=== PATIENT | female | born 1945 | race Caucasian/White ===

== ENCOUNTER 2016-10-03 11:07 | Inpatient (IN) | payer MEDICARE, BC ==
[~2016-10-03] VITALS: Ht 149.9 cm; Wt 50.5 kg
[~2016-10-03 11:07] MED LIST: ATOR80TA PO; DONE10TA37 PO; DULA0.5I SC; FLUO20CA19 PO; GABA-497 PO; GLIP-115 PO; LEVO75TA6 PO; MEMA28CA PO; SITA100T7 PO
[2016-10-03] MEDS ORDERED: SODIUM CHLORIDE 0.9% 1,000 ML IV ONE ×2 (12:00→13:11)
[2016-10-03 12:19] LABS: Basophils # (auto) 0 uL; Basophils % (auto) 0.3 % (0.0-2.0); CONDITION Y; Eosinophils # (auto) 0 uL; Hematocrit 50.2 % (36.0-46.0); Lymphocytes # (auto) 2.5 uL; Mean Corpuscular Hemoglobin 33.8 pg (28.0-32.0); Mean Corpuscular Volume 99.6 fL (80.0-100.0); Mean Platelet Volume 8.1 fL (7.4-10.4); Monocytes # (auto) 1.4 uL; Monocytes % (auto) 10.4 % (0.0-12.0); Neutrophils # (auto) 9.7 uL; Neutrophils % (auto) 71.3 % (37.0-80.0); Platelet Count (auto) 295 10^3/uL (140-450); Red Cell Distribution Width 14.3 % (11.6-16.0); White Blood Cell 13.6 10^3/uL (4.4-10.8)
[2016-10-03 12:35] LABS: INR 1.04 (0.9-1.15); Partial Thromboplastin Time 23.8 sec (22.64-33.71); Prothrombin Time 11.3 sec (9.37-12.3)
[2016-10-03 12:49] LABS: Albumin 2.8 g/dL (3.4-5.0); Alkaline Phosphatase 149 U/L (45-117); Anion Gap 7 (5-15); Aspartate Aminotransferase 112 U/L (15-37); BUN/Creatinine Ratio 33.3; Bilirubin, Total 0.6 mg/dL (0.2-1.0); Blood Urea Nitrogen 17 mg/dL (7-18); Calcium 9.2 mg/dL (8.5-10.1); Carbon Dioxide 26 mmol/L (21-32); Chloride 110 mmol/L (98-107); GFR African American 153 mL/min; GFR Non-African American 127 mL/min; Glucose 143 mg/dL (74-106); Potassium 3.8 mmol/L (3.5-5.1); Sodium 143 mmol/L (136-145); Total Protein 6.9 g/dL (6.4-8.2)
[2016-10-03] MEDS: SODIUM CHLORIDE 0.9% 1,000 ML IV SCH ×4 (16:59→23:00)
[2016-10-03] MEDS ORDERED: TEMAZEPAM 15 MG CAP PO PRN (17:00)
[2016-10-03] MEDS: InsuLIN REG 1unit/0.01ml Soln (100units/ml) SC SCH ×2 (17:00→22:00)
[2016-10-03] MEDS ORDERED: DEXTROSE (50%) 50ML SYRG IV PRN (17:00)
[2016-10-03] MEDS ORDERED: MORPHINE SULFATE 4 MG/ML SYRG IV PRN (17:00)
[2016-10-03] MEDS: ACCU-CHEK COMFORT CURVE STRIP VI SCH ×2 (17:00→22:00)
[2016-10-03] MEDS ORDERED: LORazepam 0.5 MG TAB PO PRN (17:00)
[2016-10-03] MEDS ORDERED: LACTULOSE 20Gm/30ML SOLN PO PRN (17:00)
[2016-10-03] MEDS ORDERED: MORPHINE SULF INJ 2 MG/ML SYRINGE 1ML IV PRN ×2 (17:00)
[2016-10-03] MEDS ORDERED: NITROGLYCERIN 0.4 MG SL TAB SL PRN (17:00)
[2016-10-03 17:43] LABS: Cholesterol 126 mg/dL (< 200); HDL Cholesterol 48 mg/dL (40-59); LDL Cholesterol 67 mg/dL (< 100); Triglycerides 109 mg/dL (< 150)
[2016-10-03] MEDS: ENOXAPARIN SOD 40 MG/0.4 ML SYRINGE SC SCH (17:49)
[2016-10-03 20:27] VITALS: BP 139/86
[2016-10-03 21:15] VITALS: BP 139/86
[2016-10-04 01:54] LABS: Urine Bilirubin Negative (Negative); Urine Blood 1+ /uL (Negative); Urine Color Yellow (Yellow); Urine Glucose Normal (Normal); Urine Ketone 1+ (Negative); Urine Mucus FEW (None Seen); Urine Nitrite Negative (Negative); Urine RBC 2 /hpf (0 - 4); Urine Urobilinogen Normal (Negative)
[2016-10-04 05:00] VITALS: BP 149/77
[2016-10-04] MEDS: ACCU-CHEK COMFORT CURVE STRIP VI SCH ×4 (06:55→22:07)
[2016-10-04] MEDS: InsuLIN REG 1unit/0.01ml Soln (100units/ml) SC SCH ×4 (06:56→22:00)
[2016-10-04 09:00] VITALS: BP 131/78
[2016-10-04 13:00] VITALS: BP 135/87
[2016-10-04 17:41] VITALS: BP 132/73
[2016-10-04] MEDS: ENOXAPARIN SOD 40 MG/0.4 ML SYRINGE SC SCH (18:30)
[2016-10-04 20:00] VITALS: BP 103/53
[2016-10-04 21:45] VITALS: BP 103/53
[2016-10-04] MEDS ORDERED: LORazepam 2MG/ML-1ML VIAL IV PRN (22:30)
[2016-10-05] VITALS (7 sets, daily range): BP systolic 113–127; BP diastolic 62–72
[2016-10-05] MEDS: InsuLIN REG 1unit/0.01ml Soln (100units/ml) SC SCH ×4 (06:13→22:00)
[2016-10-05] MEDS: ACCU-CHEK COMFORT CURVE STRIP VI SCH ×4 (06:13→22:03)
[2016-10-05] MEDS: SODIUM CHLORIDE 0.9% 1,000 ML IV SCH ×2 (09:55→22:57)
[2016-10-05] MEDS: MEMANTINE HCL 5 MG TAB PO SCH ×2 (09:55→22:57)
[2016-10-05 10:25] LABS: Temperature: 24.3 C (20.0-25.0)
[2016-10-05] MEDS: ENOXAPARIN SOD 40 MG/0.4 ML SYRINGE SC SCH (18:01)
[2016-10-05] MEDS: DONEPEZIL HYDROCHLORIDE 5 MG TAB PO SCH (22:57)
[2016-10-06 05:00] VITALS: BP 116/64
[2016-10-06] MEDS: SODIUM CHLORIDE 0.9% 1,000 ML IV SCH ×2 (06:23→16:18)
[2016-10-06] MEDS: ACCU-CHEK COMFORT CURVE STRIP VI SCH ×4 (06:48→22:00)
[2016-10-06] MEDS: InsuLIN REG 1unit/0.01ml Soln (100units/ml) SC SCH ×4 (06:49→22:00)
[2016-10-06 09:07] VITALS: BP 141/73
[2016-10-06] MEDS: MEMANTINE HCL 5 MG TAB PO SCH ×2 (10:52→22:25)
[2016-10-06 13:00] VITALS: BP 123/66
[2016-10-06] MEDS: FOLIC ACID 1 MG in D5W 5% 50 ML IV SCH (16:18)
[2016-10-06 16:32] VITALS: BP 137/75
[2016-10-06] MEDS: ENOXAPARIN SOD 40 MG/0.4 ML SYRINGE SC SCH (17:54)
[2016-10-06 21:38] VITALS: BP 127/65
[2016-10-06] MEDS: DONEPEZIL HYDROCHLORIDE 5 MG TAB PO SCH (22:25)
[2016-10-07] MEDS: SODIUM CHLORIDE 0.9% 1,000 ML IV SCH ×3 (00:59→20:59)
[2016-10-07 05:14] VITALS: BP 147/78
[2016-10-07] MEDS: ACCU-CHEK COMFORT CURVE STRIP VI SCH ×4 (06:46→22:00)
[2016-10-07] MEDS: InsuLIN REG 1unit/0.01ml Soln (100units/ml) SC SCH ×4 (06:46→22:00)
[2016-10-07 08:00] VITALS: BP 147/78
[2016-10-07 08:57] VITALS: BP 134/83
[2016-10-07] MEDS: MEMANTINE HCL 5 MG TAB PO SCH ×2 (09:18→22:00)
[2016-10-07] MEDS: FOLIC ACID 1 MG in D5W 5% 50 ML IV SCH (09:18)
[2016-10-07 13:46] VITALS: BP 130/82
[2016-10-07 17:17] VITALS: BP 132/76
[2016-10-07] MEDS: ENOXAPARIN SOD 40 MG/0.4 ML SYRINGE SC SCH (17:47)
[2016-10-07 22:00] VITALS: BP 150/79
[2016-10-07] MEDS: DONEPEZIL HYDROCHLORIDE 5 MG TAB PO SCH (22:00)
[2016-10-08] MEDS: InsuLIN REG 1unit/0.01ml Soln (100units/ml) SC SCH ×2 (04:45→11:29)
[2016-10-08] MEDS: SODIUM CHLORIDE 0.9% 1,000 ML IV SCH (04:46)
[2016-10-08] MEDS: ACCU-CHEK COMFORT CURVE STRIP VI SCH ×2 (04:46→11:18)
[2016-10-08 05:00] VITALS: BP 131/85
[2016-10-08 09:00] VITALS: BP 157/94
[2016-10-08] MEDS: FOLIC ACID 1 MG in D5W 5% 50 ML IV SCH (10:00)
[2016-10-08] MEDS: MEMANTINE HCL 5 MG TAB PO SCH (10:02)
[2016-10-08 13:00] VITALS: BP 142/84
== END 2016-10-08 14:25 | disposition home health service (06) | DRG 70 ==
LOC: ER 11:07 → EDBD 11:07 → TELE 11:08 → TELE-EAST 20:32
PROVIDERS: ADMIT Internal Medicine; ATTEND Internal Medicine
DX: G93.41 Metabolic encephalopathy (principal); L89.153 Pressure ulcer of sacral region, stage 3; F03.90 Unspecified dementia, unspecified severity, without behavioral disturbance, psychotic disturbance, mood disturbance, and anxiety; E11.40 Type 2 diabetes mellitus with diabetic neuropathy, unspecified; E78.5 Hyperlipidemia, unspecified; E03.9 Hypothyroidism, unspecified; I10 Essential (primary) hypertension; E53.8 Deficiency of other specified B group vitamins; K59.00 Constipation, unspecified; F41.9 Anxiety disorder, unspecified; G47.00 Insomnia, unspecified; G31.9 Degenerative disease of nervous system, unspecified; H91.90 Unspecified hearing loss, unspecified ear; F32.9 Major depressive disorder, single episode, unspecified; Q96.9 Turner's syndrome, unspecified; Z88.0 Allergy status to penicillin; Z88.6 Allergy status to analgesic agent; Z79.899 Other long term (current) drug therapy; Z86.73 Personal history of transient ischemic attack (TIA), and cerebral infarction without residual deficits; Z87.440 Personal history of urinary (tract) infections; Z80.8 Family history of malignant neoplasm of other organs or systems; Z84.1 Family history of disorders of kidney and ureter; Z71.3 Dietary counseling and surveillance
CPT/HCPCS: 36415; 70450; 71010; 76705; 80053; 80061; 80307; 80320; 81001; 82550; 82607; 82746; 82962; 83036; 84443; 84484; 85025; 85610; 85652; 85730; 87081; 87086; 93005; 93306; 93886; 95819; 96360; 96361; 97163; J1815; J7060